=== PATIENT | male | born 1935 | race Caucasian/White ===

== ENCOUNTER 2016-11-05 12:30 | Observation (INO) | payer MEDICARE, OTHER ==
--- NOTE | ~2016-11-05 | EKG ---
PATIENT: JOSELO THOMAS UNIT #: [id number] Ventricular Rate: 66 BPM Atrial Rate: 66 BPM P-R Interval: 198 ms QRS Duration: 104 ms Q-T Interval: 430 ms QTC Calculation(Bezet): 450 ms P Metz: 55 degrees Calculated R Metz: 0 degrees Calculated T Metz: 67 degrees Diagnosis Line: Normal sinus rhythm Diagnosis Line: Incomplete right bundle branch block Nonspecific Diagnosis Line: ST abnormality Diagnosis Line: Borderline ECG Diagnosis Line: When compared with ECG of 08-APR-2015 17:12, Diagnosis Line: No significant change was found Diagnosis Line: Confirmed by ALICIA SOTOMAYOR MD ([id number]) on 11/05/2016 Diagnosis Line: 4:13:17 PM INTERPRETING MD: СВЕТЛАНА CABRERA
--- NOTE | ~2016-11-05 | CO ---
Unit #: [id number] #: [id number] Patient: JOSELO THOMAS [id number] [facility] [address] [facility]. [place], [place] [address] [id number] Rudy MR#: [id number] NAME: JOSELO THOMAS. ROOM: 310 Age: 80 Sex: M Admission Date: 11/05/2016 : 1935 Attending Physician: Shelly Tabor M.D. Primary Care Physician: Nolberto Mulligan M.D. Requesting Physician: Cheo Ruiz M.D. Consultation Date: 11/05/2016 CONSULTATION REPORT REASON FOR CONSULTATION Initially Code Stroke was called. He had speech problem. PATIENT IDENTIFICATION This is an 80-year-old right-handed white male who was evaluated in room 310 at [facility]. SOURCE OF INFORMATION The patient and previous records, I saw this patient in April of 2015 and also I did evaluation via video monitoring this morning. PROBLEM LIST 1. Prior episodes like this and diagnosis of abnormal EEG and possible seizure and supposed to be on Keppra. 2. Coronary artery disease. 3. Hypertension. 4. Hyperlipidemia. 5. Diabetes. 6. Eye surgery. 7. Cataract extraction. 8. Circumcision. 9. Appendectomy. 10. Coronary artery bypass grafting. HISTORY OF PRESENT ILLNESS This is an 80-year-old gentleman who has significant past medical history and I have seen him in the past for seizurelike event, had an abnormal EEG and he was brought in today because he could not speak. He is getting clear right now and his son, [id number] and daughter came. His daughter is on significant amount of psych medication and when the son went to see him at his house he saw a very large amount of pills and different bottles and their concern was that he may have taken her medications. His CT is okay. His CTA is okay. His MRI is okay. His labs are not otherwise bad. When I saw him in April of 2015 I did EEG on him and he was already started on Keppra because the EEG was abnormal but I do not see him on any such medication anymore. He was supposed to see Dr. Drake. One incidental finding is low B12 level. This is not a stroke so all stroke workup has been held right now. Unit #: [id number] #: [id number] Patient: JOSELO THOMAS PAST MEDICAL HISTORY As discussed above. PAST SURGICAL HISTORY As discussed above. ALLERGIES None. HOME MEDICATION 1. Aspirin. 2. Atorvastatin. 3. Isosorbide. 4. Januvia. 5. Metformin. 6. Glyburide. 7. Norvasc. 8. Lisinopril. 9. Potassium. 10. Furosemide. FAMILY HISTORY Probably is not significant because of age but there is a history of coronary artery disease in family and his daughter has significant psych history. SOCIAL HISTORY He lives with his daughter. No tobacco, alcohol or drug use. REVIEW OF SYSTEMS A bit concerning for memory problems so review of systems is very questionable in this case. CONSTITUTIONAL: He denies any sleep issues, fever, chills, rigors or sweats. HEENT: No headaches. No double vision. No earache. No sore throat. CARDIOVASCULAR: No chest pain, clubbing, cyanosis, orthopnea or palpitation. PULMONARY: No shortness of air, cough or expectoration. GASTROINTESTINAL: No nausea, vomiting, diarrhea or constipation. GENITOURINARY: No genitourinary symptoms. EXTREMITIES: No extremity problems. BACK: No back problems. PSYCHIATRIC: Issue is probably dementia or delirium NEUROLOGIC: Issue is prior seizures. No other hematologic, dermatologic or endocrine problems noted. PHYSICAL EXAMINATION VITAL SIGNS: Temperature 97.6, pulse 72, respirations 15, blood pressure is 145/87, O2 sats were 95% to 100% and weight of 153 pounds. NEUROLOGICAL EXAMINATION GENERAL: The patient is awake. He is alert. He knows where he is. He is mildly dysarthric but not aphasic. He is not oriented to time, otherwise he is fine. He can name and he can follow commands. No right/left confusion. No finger agnosia. CRANIAL NERVE EXAMINATION: The cranial nerve examination demonstrates he responds to threats in all alarcon. Eye movements are conjugate. I did Unit #: [id number] #: [id number] Patient: JOSELO THOMAS not see any ptosis. I did not see any nystagmus. Extraocular movements are intact. Sensation on the face and scalp is normal. Sensory muscles of facial expression are normal. Hearing is seems to be intact to bilaterally, probably mildly decreased. Tongue was midline. Uvula was midline. Head turning was spontaneous. MOTOR: Examination demonstrates normal bulk, tone. Strength was essentially 5-/5 all over. SENSORY: Examination intact for soft touch and pain sensation. No extinction was seen. Romberg was not evaluated. GAIT: Examination was deferred. REFLEXES: I could now get any reflexes. Toes are equivocal. DIAGNOSTIC STUDIES LABORATORY: Labs reviewed. Random glucose 146. His B12 level was low at 172. White count is 7.6, hemoglobin is 12.4. Urine drug screen was negative. Urinalysis really did not show anything major. IMAGING: Studies reviewed. IMPRESSION 1. This is a very interesting 80-year-old gentleman who probably had some polypharmacy and taking some of his daughter's psych medications. 2. This is not a stroke or a TIA. 3. He has history of seizures in the past and had abnormal EEG so this one may be a provoked event but I cannot rule out seizures and that is what the family is concern about so I will resume his antiepileptics but probably put him on Vimpat because of the cognitive changes that I am seeing in him. I really do not see any point of doing an EEG. If he is fine by tomorrow he can be discharged to follow up with Neurology. I believe he sees Dr. Drake. 4. I will also recommend B12 supplements and talk to the family so supportive care as far as I am concerned. Call me with any other question, issue or concern and further treatment will be based on any other changes. Other medication may be tried if Vimpat is not a good fit for any reason. 5. Loss of consciousness precautions are questionable though I have not been able to document that he had lost of consciousness so that is debatable. Dictated by... Stephen Javed/azul TD: 11/05/2016 18:56 JOB #: [id number] Unit #: [id number] #: [id number] Patient: JOSELO THOMAS CONSULTATION REPORT Page 1 of 1 X Olga Hernandez MD CONSULTATION REPORT
--- NOTE | ~2016-11-05 | CR72 ---
[facility] A Service of [facility] & [facility] RADIOLOGY TEXT RESULTS PATIENT: JOSELO THOMAS LOCATION: [facility] - : 33 UNIT #: [id number] AGE: [address]: Sarah Garduno MD SEX: M ORDER DR: [id number] [facility] [address] [place], [place] [address] [id number] I MR#: [id number] Acc #: [id number] NAME: JOSELO THOMAS. : 1935 SEX: M STUDY DATE/TIME: 11/05/2016 15:42 UNIT: [address] ROOM: [facility] STUDY DESCRIPTION: CR Chest Single View Portable Attending Physician: Shelly Tabor M.D. Ordering Physician: Shelly Tabor M.D. Primary Care Physician: Nolberto Mulligan M.D. MEDICAL IMAGING REPORT This report is preliminary unless electronic signature is present EXAM Portable chest 11/05/2016 HISTORY Lethargy, shortness of breath and chest congestion beginning at 09:00 a.m. today. FINDINGS The heart is normal in size status post median sternotomy. There is poor inspiratory result with bibasilar atelectasis. The upper lungs are clear. There are no pleural effusions. IMPRESSION Prior median sternotomy. No active pulmonary disease. Dictated by... Brad Herr M.D. THIS IS AN ELECTRONICALLY VERIFIED REPORT Brad Herr M.D. at 11/06/2016 10:45 AM Minerva TD: 11/06/2016 06:26 JOB #: [id number] MEDICAL IMAGING REPORT Page 1 of 1 COPY
--- NOTE | ~2016-11-05 | CT24 ---
[facility] A Service of [facility] RADIOLOGY TEXT RESULTS PATIENT: JOSELO THOMAS LOCATION: [facility] 301-01 : 33 UNIT #: [id number] AGE: [address]: Sarah Garduno MD SEX: M ORDER DR: [id number] [address] [address] [id number] E MR#: [id number] Acc #: [id number] NAME: JOSELO THOMAS. : 1935 SEX: M STUDY DATE/TIME: 11/05/2016 10:38 UNIT: [facility] ROOM: STUDY DESCRIPTION: CT Angio Neck Stroke Attending Physician: Micheal Ruiz Ordering Physician: Micheal Ruiz, [id number] Primary Care Physician: Nolberto Mulligan M.D. MEDICAL IMAGING REPORT This report is preliminary unless electronic signature is present EXAM CTA neck. FINDINGS Result text under order number [id number]. Please see this order for result text. Dictated by... Nemesio Reynaga M.D. THIS IS AN ELECTRONICALLY VERIFIED REPORT Nemesio Reyngaa M.D. at 11/06/2016 10:31 AM LUCÍA/rocael TD: 11/05/2016 14:02 JOB #: [id number] MEDICAL IMAGING REPORT Page 1 of 1 COPY
--- NOTE | ~2016-11-05 | HP ---
Unit #: [id number] #: [id number] Patient: JOSELO THOMAS [id number] [facility] [address] [facility]. [place], [place] [address] [id number] E MR#: [id number] NAME: JOSELO THOMAS. ROOM: Age: 80 Sex: M Admission Date: 11/05/2016 : 1935 Attending Physician: Cheo Ruiz M.D. Primary Care Physician: Nolberto Mulligan M.D. HISTORY AND PHYSICAL CHIEF COMPLAINT Stroke. HISTORY OF PRESENT ILLNESS The patient is an 80-year-old male with past medical history of hypertension, hyperlipidemia, diabetes, coronary artery disease, who presented to the emergency department for evaluation of the above. History is obtained from chart review and discussion with the ER staff as well as from the patient's daughter and son-in-law who are at the bedside. Of note, the patient lives with a daughter that is not currently at the bedside. The patient was apparently last normal around 9:30 a.m. He went to [facility]. He was noted by rastafarian members to be "nodding off." There was concern for possible abnormal speech. He was brought to the emergency department for further evaluation. In the emergency department a Code Stroke was called. He was not thought to be a candidate for tPA. CT of the head showed nothing acute. CT angiogram of the head and neck was negative. He is being admitted to [facility] for evaluation and further treatment. Of note, the patient was hospitalized at [facility] April 082014 for a similar problem. He was thought to have possibly had a seizure. He underwent an EEG that was abnormal and was discharged home on Keppra which he has been taking as prescribed. PAST MEDICAL HISTORY 1. Admission to [facility] April 08-2014 for altered mental status with possible seizure. He underwent EEG, on April 12, 2015, that was abnormal. He was discharged home on Keppra and was supposed to be following up with Dr. Drake. 2. Coronary artery disease, status post coronary artery bypass grafting. 3. Hypertension. 4. Hyperlipidemia. 5. Diabetes. 6. Echocardiogram April 12, 2008 showed ejection fraction of 50% with moderate septal hypokinesis, mild concentric left ventricular hypertrophy, mild mitral regurgitation, mild dilatation of the left atrium, mild tricuspid regurgitation. PAST SURGICAL HISTORY 1. Eye surgery. 2. Cataract extraction. 3. Circumcision. Unit #: [id number] #: [id number] Patient: JOSELO THOMAS 4. Appendectomy. 5. Coronary artery bypass grafting. SOCIAL HISTORY The patient lives with his daughter. There is no tobacco or alcohol use. He walks without assistance. FAMILY HISTORY Family history is notable for coronary artery disease. ALLERGIES No known allergies. HOME MEDICATIONS Include: 1. Aspirin 81 mg daily. 2. Atorvastatin 20 mg daily. 3. Isosorbide 30 mg daily. 4. Januvia 100 mg daily. 5. Metformin 500 mg b.i.d. 6. Glyburide 5 mg daily. 7. Norvasc 10 mg daily. 8. Lisinopril 40 mg q.a.m. and 20 mg q.p.m. 9. Potassium 10 mEq Sunday, Sunday, Sunday. 10. Furosemide unknown dose. REVIEW OF SYSTEMS A complete review of systems is somewhat limited from the patient due to altered mental status. The family members that are at the bedside are concerned that the patient and his daughter may have confused medication. They are requesting healthcare social worker evaluation. DIAGNOSTIC STUDIES IMAGING: CT of the head showed nothing acute. CT angiogram of the head and neck was essentially negative. LABORATORY: Complete blood count notable for hemoglobin and hematocrit of 12.4 and 40 respectively. INR is 1. Basic metabolic panel notable for a glucose of 146, BUN and creatinine 21 and 1.3 respectively. Urinalysis notable for greater than 1000 glucose. Urine tox screen is negative. PHYSICAL EXAMINATION VITAL SIGNS: Temperature is 97. Pulse 94. Respirations 16. Blood pressure 153/66. Oxygen saturation 95% on room air. GENERAL: The patient is a male who is lethargic but wakes to physical stimuli. HEENT: The head is atraumatic. Mucous membranes are moist. NECK: Neck is supple. Trachea is midline. CARDIOVASCULAR: Regular rate and rhythm. LUNGS: Lungs are clear to auscultation bilaterally with no increased work of breathing. ABDOMEN: Abdomen is soft, nontender, with bowel sounds present in all four quadrants. EXTREMITIES: Nontender, with no pedal edema. NEUROLOGIC: The patient is lethargic. His speech is somewhat slurred. There is no facial asymmetry. Tongue is midline. He follows commands. He is moving all extremities. Unit #: [id number] #: [id number] Patient: JOSELO THOMAS PSYCHIATRIC: The patient is cooperative. SKIN: Skin of examined areas is warm and dry. ASSESSMENT The patient is an 80-year-old male with: 1. Altered mental status. The patient was initially Code Stroke but was not thought to be a candidate for tPA. CT of the head was negative. CT angiogram of the head and neck is essentially negative. He had a similar presentation in 2014 and was started on Keppra which he has been taking as prescribed. There is also concern for possible medication involvement. The patient's daughter is apparently on multiple psychiatric medications and family is concerned that they may have confused their medications. Tox screen is negative. 2. Abnormal speech. 3. Hypertension. 4. Hyperlipidemia. 5. Diabetes. 6. Coronary artery disease, status post coronary artery bypass grafting. PLAN 1. Admit for observation to intermediate level. 2. Healthy heart consistent carb diet if passes bedside swallow. 3. Normal saline at 75 mL an hour. 4. MRI of the brain without contrast for further evaluation of altered mental status and abnormal speech. 5. Neuro checks. 6. Stroke protocol per neurology. 7. Consult Dr. Hernandez regarding altered mental status and abnormal speech. 8. TSH, B12 and folate. 9. Check LFTs. 10. Chest x-ray. 11. EKG and cardiac enzymes if not done. 12. Hemoglobin A1C. 13. Low dose sliding scale insulin with Accu-Cheks. 14. Aspirin if the patient has not already been given aspirin. 15. Hold any medication that could be contributing to altered mental status. 16. police manager/social work consult regarding home safety and possible medication issues. 17. SCDs for DVT prophylaxis. 18. Additional workup and consultants based on above. Dictated by Shelly Tabor M.D. Vijay TD: 11/05/2016 14:44 JOB #: [id number] Unit #: [id number] #: [id number] Patient: JOSELO THOMAS HISTORY AND PHYSICAL Page 1 of 1 X Shelly Tabor MD X HISTORY AND PHYSICAL
--- NOTE | ~2016-11-05 | MR18 ---
[facility] A Service of [facility] RADIOLOGY TEXT RESULTS PATIENT: JOSELO THOMAS LOCATION: [facility] : 33 UNIT #: [id number] AGE: [address]: Shelly Tabor MD SEX: M ORDER DR: [id number] [facility] [address] [facility]. [place], [place] [address] [id number] I MR#: [id number] Acc #: [id number] NAME: JOSELO THOMAS. : 1935 SEX: M STUDY DATE/TIME: 11/05/2016 16:27 UNIT: [address] ROOM: [address] [place] [address] DESCRIPTION: MR Brain Wo Contrast Attending Physician: Shelly Tabor M.D. Ordering Physician: Shelly Tabor M.D. Primary Care Physician: Nolberto Mulligan M.D. MRI CENTER REPORT This report is preliminary unless electronic signature is present. EXAM MRI brain without contrast INDICATIONS Slurred speech, weakness and confusion beginning on 11/05/2016 PROCEDURE Multiplanar, multisequence MR imaging of the brain without administration of contrast COMPARISON 04/09/2015 FINDINGS Age-appropriate generalized volume loss. There is mild periventricular T2 hyperintensity that is stable from the prior. Diffusion weighted imaging shows no evidence for acute or early subacute infarct. There is no evidence for acute hemorrhage, abnormal mass effect, extraaxial collection or hydrocephalus. Flow voids in the major intracranial vessels are intact and the paranasal sinuses and mastoid air cells are predominately clear. IMPRESSION 1. No acute findings. 2. No appreciable change from 04/09/2015. Dictated by... Cheo Morales M.D. THIS IS AN ELECTRONICALLY VERIFIED REPORT Cheo Morales M.D. at 11/06/2016 7:40 AM Slick TD: 11/06/2016 06:54 [facility] A Service [facility] RADIOLOGY TEXT RESULTS PATIENT: JOSELO THOMAS LOCATION: [facility] : 33 UNIT #: [id number] AGE: [address]: Shelly Tabor MD SEX: M ORDER DR: JOB #: [id number] MRI CENTER REPORT Page 1 of 1 COPY
--- NOTE | ~2016-11-05 | CT18 ---
[facility] A Service of [facility] RADIOLOGY TEXT RESULTS PATIENT: JOSELO THOMAS LOCATION: [facility] : 33 UNIT #: [id number] AGE: [address]: Sarah Garduno MD SEX: M ORDER DR: [id number] [facility] [address] [facility]. [place], [place] [address] [id number] E MR#: [id number] Acc #: [id number] NAME: JOSELO THOMAS. : 1935 SEX: M STUDY DATE/TIME: 11/05/2016 10:38 UNIT: [facility] ROOM: STUDY DESCRIPTION: CT Angio Head Stroke Attending Physician: Micheal Ruiz Ordering Physician: Micheal Ruiz, [id number] Primary Care Physician: Nolberto Mulligan M.D. MEDICAL IMAGING REPORT This report is preliminary unless electronic signature is present EXAM Head and neck CT angiogram PROCEDURE Axial contrast enhanced head and neck CT angiogram with 3-dimensional reformats. This CT exam was performed with one or more of the following radiation dose reduction techniques: automatic exposure control, adjustment of mA and/or kV according to patient size, and iterative reconstruction. COMPARISON Head CT without contrast same date. HISTORY About 40 minutes prior to admission found with slurred speech, slumped over and generalized weakness. FINDINGS There is a normal arch branching pattern without proximal great vessel stenosis but there is mild left vertebral dominance. There is plaque at the cervical carotid bifurcations but 0% stenosis in both internal carotids by NASCET criteria. The vertebral arteries are patent throughout the neck as well, with perhaps slight less vertebral dominance. The basilar artery is normal in caliber. Intracranially, the left posterior communicator is clearly demonstrated and the right is probably tiny and patent. The anterior communicator appears probably patent. There is symmetric intracranial vascularity in the anterior, middle and posterior cerebellar distributions. There is no aneurysm or flow limiting [facility] A Service [facility] RADIOLOGY TEXT RESULTS PATIENT: JOSELO THOMAS LOCATION: [facility] : 33 UNIT #: [id number] AGE: [address]: Sarah Garduno MD SEX: M ORDER DR: stenosis. There is mild cerebral volume loss but no convincing evidence of any acute intracranial abnormality. No hemorrhage or mass or lack of or abnormal enhancement. The dural venous sinuses are normal. The cervical soft tissues demonstrate no acute abnormality. The lung apices show no acute findings. There are spinal degenerative changes. IMPRESSION Essentially negative head and neck CT angiogram. No intra or extracranial aneurysm or flow limiting stenosis, branch vessel occlusion or other acute abnormality. Dictated by... Nemesio Reynaga M.D. THIS IS AN ELECTRONICALLY VERIFIED REPORT Nemesio Reynaga M.D. at 11/06/2016 10:31 AM LUCÍA/rocael TD: 11/05/2016 14:01 JOB #: [id number] MEDICAL IMAGING REPORT Page 1 of 1 COPY
--- NOTE | ~2016-11-05 | CT72 ---
[facility] A Service of [facility] RADIOLOGY TEXT RESULTS PATIENT: JOSELO THOMAS LOCATION: [facility] : 33 UNIT #: [id number] AGE: [address]: Micheal Ruiz MD SEX: M ORDER DR: [id number] [facility] [address] [place], [place] [address] [id number] E MR#: [id number] Acc #: [id number] NAME: JOSELO THOMAS. : 1935 SEX: M STUDY DATE/TIME: 11/05/2016 10:28 UNIT: [facility] ROOM: STUDY DESCRIPTION: CT Head Wo Contrast Stroke Attending Physician: Cheo Ruiz M.D. Ordering Physician: Cheo Ruiz M.D. Primary Care Physician: Nolberto Mulligan M.D. MEDICAL IMAGING REPORT This report is preliminary unless electronic signature is present EXAM CT head without contrast 11/05/2016. HISTORY 80-year-old male with slurred speech and generalized weakness beginning today [address] head 04/08/2015 TECHNIQUE Routine unenhanced axial images performed through the brain. FINDINGS No hemorrhage, acute infarction, mass lesion, or abnormal extraaxial fluid collection. No midline shift or focal mass effect. Ventricular system normal in size and configuration. Mild generalized atrophy and mild chronic small vessel disease. No acute bony abnormality. Mild mucosal thickening left frontal sinus and right frontal sinus. Visualized mastoid air cells are clear. IMPRESSION 1. No acute intracranial abnormality. 2. Several stable mild age-related atrophy and chronic small vessel disease. 3. Minimal mucosal thickening bilateral frontal sinus. Dictated by... Efraín Oden M.D. THIS IS AN ELECTRONICALLY VERIFIED REPORT Efraín Oden M.D. at 11/05/2016 2:14 PM [facility] A Service of [facility] & [facility] RADIOLOGY TEXT RESULTS PATIENT: JOSELO THOMAS LOCATION: [facility] : 33 UNIT #: [id number] AGE: [address]: Micheal Ruiz MD SEX: M ORDER DR: Ina TD: 11/05/2016 12:52 JOB #: [id number] MEDICAL IMAGING REPORT Page 1 of 1 COPY
--- NOTE | ~2016-11-05 | EKG ---
PATIENT: JOSELO THOMAS UNIT #: [id number] Ventricular Rate: 75 BPM Atrial Rate: 75 BPM P-R Interval: 178 ms QRS Duration: 100 ms Q-T Interval: 404 ms QTC Calculation(Bezet): 451 ms P [place]: 48 degrees Calculated R [place]: -16 degrees Calculated T [place]: 67 degrees Diagnosis Line: Normal sinus rhythm Diagnosis Line: Incomplete right bundle branch block T wave Diagnosis Line: abnormality, consider anterior ischemia Diagnosis Line: Abnormal ECG Diagnosis Line: When compared with ECG of 05-NOV-2016 10:52, Diagnosis Line: (unconfirmed) Diagnosis Line: No significant change was found Diagnosis Line: Confirmed by ALICIA SOTOMAYOR MD ([id number]) on 11/05/2016 Diagnosis Line: 4:14:00 PM INTERPRETING MD: СВЕТЛАНА CABRERA
[2016-11-05 10:30] LABS: BASOPHIL% 0.6 % (0-2.5); EOSINOPHIL# 0.1 X10e3 (0-0.7); EOSINOPHIL% 1.6 % (0.0-7.0); HEMOGLOBIN 12.4 gm/dL (13.0-16.0); LYMPHOCYTE# 2.1 X10e3 (1.0-3.5); MEAN CELL VOLUME 81.4 FL (83-96); MEAN CORPUSCULAR HEMOGLOBIN 25.3 PG (28-34); MEAN PLATELET VOLUME 8.2 FL (6.5-11.5); MONOCYTE# 0.5 X10e3 (0-1.0); MONOCYTE% 7.1 % (3.0-12.0); NEUTROPHIL# 4.7 X10e3 (1.5-7.1); NEUTROPHIL% 62.7 % (40-75); PLATELET COUNT 177 X10e3 (140-420); RED BLOOD COUNT 4.92 X10e (3.90-5.60); WHITE BLOOD COUNT 7.6 X10e3 (4.0-10.5)
[2016-11-05 10:35] LABS: DIFF IND NO
[2016-11-05 10:43] LABS: PROTHROMBIN TIME (PATIENT) 10.5 SECONDS (9.6-11.5)
[2016-11-05 10:53] LABS: BUN/CREATININE RATIO 16.15; CALCIUM SERUM 8.8 mg/dL (8.4-10.2); CREATININE SERUM 1.3 mg/dL (0.6-1.4); GLOM FILT RATE Estimated 50.8 mL/min (>60); POTASSIUM 4.1 mmol/L (3.5-5.1)
[2016-11-05 11:41] LABS: URINE SOURCE CLEAN CATCH
[2016-11-05 11:48] LABS: URINE APPEARANCE CLEAR; URINE BILIRUBIN NEG (NEG); URINE BLOOD NEG (NEG); URINE COLOR YELLOW; URINE GLUCOSE >1000 MG/DL (NEG); URINE KETONE NEG (NEG); URINE LEUKOCYTE ESTERASE NEG (NEG); URINE NITRATE NEG (NEG); URINE PH 7.5 (5-8); URINE PROTEIN NEG (NEG); URINE SPECIFIC GRAVITY 1.019 (1.003-1.035); URINE UROBILINOGEN 0.2 MG/DL (NEG)
[2016-11-05 11:58] LABS: CULTURE INDICATED? NO
[2016-11-05 11:59] LABS: AMPHETAMINE NEG (NEG); BARBITURATES NEG (NEG); BENZODIAZEPINES NEG (NEG); COCAINE NEG (NEG); MARIJUANA NEG (NEG); OPIATES NEG (NEG); TRICYCLIC ANTIDEPRESSANTS NEG (NEG); U METHADONE NEG (NEG)
[~2016-11-05 12:30] MED LIST: ASPIRIN PO; ASPIRIN81 MG PO; CARVEDILOL3.125 MG PO; COREG; GLYBURIDE PO; HCTZ PO; IMDUR-ER30 M1 PO; INVOKANA100 MG PO; ISMO20 MG PO; JANUVIA PO; JANUVIA50 MG; KEPPRA500 M2 PO; LASIX; LASIX PO; LIPITOR PO; LIPITOR20 MG PO; LISINOPRIL PO; LOPRESSOR PO; METFORMIN PO; NORVASC PO; PLAVIX300 MG PO; POTASSIUM CHLO10 ME1 PO; POTASSIUM CHLO10 MEQ; PRINIVIL20 M1 PO
[2016-11-05] MEDS ORDERED: ASPIRIN81 MG PO (13:56)
[2016-11-05] MEDS ORDERED: ISOSORBIDE MONO30 M1 PO (13:57)
[2016-11-05] MEDS ORDERED: LIPITOR20 MG PO (13:57)
[2016-11-05] MEDS ORDERED: METFORMIN HCL500 M3 PO (13:58)
[2016-11-05] MEDS ORDERED: JANUVIA PO (13:58)
[2016-11-05] MEDS ORDERED: MICRONASE5 M2 PO (14:00)
[2016-11-05] MEDS ORDERED: NORVASC10 MG PO (14:01)
[2016-11-05] MEDS ORDERED: LISINOPRIL PO (14:02)
[2016-11-05] MEDS ORDERED: ZESTRIL40 MG PO (14:02)
[2016-11-05] MEDS ORDERED: POTASSIUM CHLO10 ME1 PO (14:03)
[2016-11-05 15:10] LABS: POC - CREATININE 1.21 mg/dL (0.64-1.27); POC - GFR >60.0 mL/min (>60)
[2016-11-05 15:28] LABS: ALBUMIN SERUM 3.9 g/dL (3.5-5.0); BILIRUBIN, DIRECT 0.2 mg/dL (0.0-0.2); BILIRUBIN,INDIRECT 0.6 mg/dL (0.0-0.9); BILIRUBIN,TOTAL 0.8 mg/dL (0.2-2.0); PROTEIN TOTAL SERUM 6.6 g/dL (6.0-8.3)
[2016-11-05 15:47] LABS: %MB 2.4 % (0.0-4.0); MB 1.7 ng/ml
[2016-11-05 15:48] LABS: ARTERIAL BLD GAS O2 SATURATION 96.5 % (90.0-100.0); ARTERIAL BLOOD GAS CARBOXY HB 0.5 %sat (0.0-9.0); ARTERIAL BLOOD GAS HCO3 24.9 mmol/L; ARTERIAL BLOOD GAS MET HB 1.1 %sat (0.0-2.0); ARTERIAL BLOOD GAS PCO2 36.4 mmHg (35.0-45.0); ARTERIAL BLOOD GAS pH 7.444 (7.350-7.450)
[2016-11-05 15:50] LABS: ARTERIAL BLOOD GAS ALLEN TEST POS; ARTERIAL BLOOD GAS ART SITE RIGHT RADIAL; ARTERIAL BLOOD GAS DELIVERY NASAL CANNULA; ARTERIAL DRAW? YES
[2016-11-05 16:08] LABS: FOLATE (FOLIC ACID) 22.1 ng/mL (>5.8)
[2016-11-05 21:05] LABS: %MB 2.6 % (0.0-4.0); MB 1.8 ng/ml
[2016-11-06 03:00] LABS: HEMOGLOBIN 12.6 gm/dL (13.0-16.0); MEAN CELL VOLUME 80.4 FL (83-96); MEAN CORPUSCULAR HEMOGLOBIN 25.2 PG (28-34); MEAN CORPUSCULAR HGB CONC 31.4 g/dL (30-36); MEAN PLATELET VOLUME 8.3 FL (6.5-11.5); RED BLOOD COUNT 4.98 X10e (3.90-5.60); RED CELL DISTRIBUTION WIDTH 15.5 % (11.0-15.5); WHITE BLOOD COUNT 9.7 X10e3 (4.0-10.5)
[2016-11-06 03:24] LABS: ALBUMIN SERUM 3.7 g/dL (3.5-5.0); BILIRUBIN,TOTAL 0.8 mg/dL (0.2-2.0); BUN/CREATININE RATIO 15.45; CALCIUM SERUM 8.4 mg/dL (8.4-10.2); CREATININE SERUM 1.1 mg/dL (0.6-1.4); GLOM FILT RATE Estimated 62.2 mL/min (>60); POTASSIUM 3.5 mmol/L (3.5-5.1); PROTEIN TOTAL SERUM 6.2 g/dL (6.0-8.3)
[2016-11-06 03:37] LABS: %MB 1.8 % (0.0-4.0); MB 2.3 ng/ml
[2016-11-06] MEDS ORDERED: KEPPRA500 M2 PO (16:09)
[2016-11-06] MEDS ORDERED: B-121000 MC1 PO (16:09)
== END 2016-11-06 17:40 | disposition home or self-care (01) ==
LOC: CED 12:30 → CEDOF 14:20 → C3A PCU 17:07
PROVIDERS: Emergency Medicine; Family Medicine
DX: R41.82 Altered mental status, unspecified (principal); R47.9 Unspecified speech disturbances; I10 Essential (primary) hypertension; I25.10 Atherosclerotic heart disease of native coronary artery without angina pectoris; Z95.1 Presence of aortocoronary bypass graft; E78.5 Hyperlipidemia, unspecified; E11.9 Type 2 diabetes mellitus without complications; Z79.84 Long term (current) use of oral hypoglycemic drugs; Z82.49 Family history of ischemic heart disease and other diseases of the circulatory system; R94.01 Abnormal electroencephalogram [EEG]
CPT/HCPCS: 36600; 70450; 70496; 70498; 70551; 71010; 80048; 80053; 80076; 80307; 81003; 82550; 82553; 82565; 82607; 82746; 82803; 82947; 83036; 84443; 84484; 85025; 85027; 85610; 92610; 93005; 94760; 96372; 99285; G0378; G8996-GN; G8997-GN; G8998-GN; J1815; J3420; Q9967

== ENCOUNTER 2016-11-15 10:43 | Emergency (ER) | payer MEDICARE ==
--- NOTE | ~2016-11-15 | EKG ---
PATIENT: JOSELO THOMAS UNIT #: [id number] Ventricular Rate: 68 BPM Atrial Rate: 68 BPM P-R Interval: 192 ms QRS Duration: 98 ms Q-T Interval: 418 ms QTC Calculation(Bezet): 444 ms P Goree: 43 degrees Calculated R Goree: -4 degrees Calculated T Goree: 88 degrees Diagnosis Line: Normal sinus rhythm Diagnosis Line: Incomplete right bundle branch block Diagnosis Line: T wave abnormality, consider anterior ischemia Diagnosis Line: Abnormal ECG Diagnosis Line: When compared with ECG of 05-NOV-2016 14:38, Diagnosis Line: T wave inversion more evident in Anterior leads Diagnosis Line: Confirmed by ALICIA SOTOMAYOR MD ([id number]) on 11/16/2016 Diagnosis Line: 10:36:51 AM INTERPRETING MD: СВЕТЛАНА CABRERA
--- NOTE | ~2016-11-15 | CT71 ---
[facility] A Service of [facility] RADIOLOGY TEXT RESULTS PATIENT: JOSELO THOMAS LOCATION: [facility] : 33 UNIT #: [id number] AGE: [address]: Carl Solorio MD SEX: M ORDER DR: [id number] [facility] [address] [place], [place] [address] [id number] E MR#: [id number] Acc #: [id number] NAME: JOSELO THOMAS. : 1935 SEX: M STUDY DATE/TIME: 11/15/2016 12:35 UNIT: [facility] ROOM: STUDY DESCRIPTION: CT Head Wo Contrast Attending Physician: Carl Solorio M.D. Ordering Physician: Carl Solorio M.D. Primary Care Physician: Nolberto Mulligan M.D. MEDICAL IMAGING REPORT This report is preliminary unless electronic signature is present EXAM Noncontrast CT head DATE 11/15/2016 at 12:35 HISTORY Weakness and slurred speech this morning. Last seen normal last night. History of diabetes, hypertension. COMPARISON Noncontrast CT head and CTA head neck 11/05/2016. MRI brain 11/05/2016. TECHNIQUE This CT exam was performed with one or more of the following radiation dose reduction techniques: automatic exposure control, adjustment of mA and/or kV according to patient size, and iterative reconstruction. FINDINGS Hypodensities are present within the deep white matter of the brain thought to represent changes of chronic microvascular disease, slightly more prominent within the subinsular regions. These findings appear similar to the previous examination. No convincing CT evidence of acute or evolving infarct. No mass lesion, mass effect, midline shift or intracranial hemorrhage is seen. There is rzqx-he-xxdmnsox generalized parenchymal atrophy. Ventricular configuration is stable and within normal limits. There is mild ethmoid sinus mucosal thickening. Calvarium is within normal limits. Mastoid air cells are clear. IMPRESSION Chronic microvascular disease changes of bacr-xe-sohfyman generalized parenchymal atrophy, without significant change compared to 11/05/2016. No acute intracranial findings. [facility] A Service of [facility] RADIOLOGY TEXT RESULTS PATIENT: JOSELO THOMAS LOCATION: [facility] : 33 UNIT #: [id number] AGE: [address]: Carl Solorio MD SEX: M ORDER DR: Dictated by... Penelope Nevarez M.D. THIS IS AN ELECTRONICALLY VERIFIED REPORT Penelope Nevarez M.D. at 11/17/2016 7:14 AM [facility]/arash TD: 11/15/2016 13:23 JOB #: [id number] MEDICAL IMAGING REPORT Page 1 of 1 COPY
--- NOTE | ~2016-11-15 | CR72 ---
[facility] A Service of [facility] RADIOLOGY TEXT RESULTS PATIENT: JOSELO THOMAS LOCATION: [facility] : 33 UNIT #: [id number] AGE: [address]: Carl Solorio MD SEX: M ORDER DR: [id number] [facility] [address] [place], [place] [address] [id number] E MR#: [id number] Acc #: [id number] NAME: JOSELO THOMAS. : 1935 SEX: M STUDY DATE/TIME: 11/15/2016 12:58 UNIT: [facility] ROOM: STUDY DESCRIPTION: CR Chest Single View Portable Attending Physician: Carl Solorio M.D. Ordering Physician: Carl Solorio M.D. Primary Care Physician: Nolberto Mulligan M.D. MEDICAL IMAGING REPORT This report is preliminary unless electronic signature is present EXAM Chest portable, 11/15/2016 12:58 hours HISTORY 80-year-old man with weakness, slurred speech this morning. Possible acute CVA. COMPARISON 11/05/2016 FINDINGS Portable upright chest demonstrates median sternotomy change with normal heart size and stable tortuous atherosclerotic aorta. The lungs are well expanded and clear. There is no effusion or pneumothorax. Probable hiatal hernia. IMPRESSION Median sternotomy change with normal heart size and stable tortuous aorta. The lungs are clear and there are no effusions. Dictated by... Keara Garcia M.D. THIS IS AN ELECTRONICALLY VERIFIED REPORT Keara Garcia M.D. at 11/15/2016 2:29 PM Andreas TD: 11/15/2016 14:00 JOB #: [id number] MEDICAL IMAGING REPORT Page 1 of 1 COPY
[~2016-11-15 10:43] MED LIST changes: +B-121000 MC1 PO; +ISOSORBIDE MONO30 M1 PO; +METFORMIN HCL500 M3 PO; +MICRONASE5 M2 PO; +NORVASC10 MG PO; +ZESTRIL40 MG PO
[2016-11-15 12:41] LABS: BASOPHIL# 0.1 X10e3 (0-0.3); BASOPHIL% 0.6 % (0-2.5); EOSINOPHIL% 0.5 % (0.0-7.0); HEMOGLOBIN 13.1 gm/dL (13.0-16.0); LYMPHOCYTE# 1.5 X10e3 (1.0-3.5); LYMPHOCYTE% 17.3 % (17.0-45.0); MEAN CELL VOLUME 81.5 FL (83-96); MEAN CORPUSCULAR HEMOGLOBIN 25.4 PG (28-34); MEAN CORPUSCULAR HGB CONC 31.2 g/dL (30-36); MEAN PLATELET VOLUME 8.2 FL (6.5-11.5); MONOCYTE# 0.5 X10e3 (0-1.0); MONOCYTE% 5.3 % (3.0-12.0); NEUTROPHIL# 6.5 X10e3 (1.5-7.1); NEUTROPHIL% 76.3 % (40-75); PLATELET COUNT 194 X10e3 (140-420); RED BLOOD COUNT 5.15 X10e (3.90-5.60); WHITE BLOOD COUNT 8.5 X10e3 (4.0-10.5)
[2016-11-15 12:43] LABS: DIFF IND NO
[2016-11-15 13:12] LABS: ALBUMIN SERUM 3.9 g/dL (3.5-5.0); BILIRUBIN, DIRECT 0.1 mg/dL (0.0-0.2); BILIRUBIN,INDIRECT 0.5 mg/dL (0.0-0.9); BILIRUBIN,TOTAL 0.6 mg/dL (0.2-2.0); CREATININE SERUM 1.2 mg/dL (0.6-1.4); POTASSIUM 4.4 mmol/L (3.5-5.1); PROTEIN TOTAL SERUM 6.8 g/dL (6.0-8.3)
[2016-11-15 14:25] LABS: URINE SOURCE CLEAN CATCH
[2016-11-15 14:29] LABS: URINE APPEARANCE CLEAR; URINE BILIRUBIN NEG (NEG); URINE BLOOD NEG (NEG); URINE COLOR YELLOW; URINE GLUCOSE >1000 MG/DL (NEG); URINE KETONE TRACE (NEG); URINE LEUKOCYTE ESTERASE NEG (NEG); URINE NITRATE NEG (NEG); URINE PROTEIN NEG (NEG); URINE SPECIFIC GRAVITY 1.032 (1.003-1.035)
[2016-11-15 14:33] LABS: CULTURE INDICATED? NO
[2016-11-15 14:40] LABS: AMPHETAMINE NEG (NEG); BARBITURATES NEG (NEG); BENZODIAZEPINES NEG (NEG); COCAINE NEG (NEG); MARIJUANA NEG (NEG); OPIATES NEG (NEG); TRICYCLIC ANTIDEPRESSANTS NEG (NEG); U METHADONE NEG (NEG)
[2016-11-15 15:24] LABS: POC - TROPONIN <0.05 ng/mL (<=0.05)
== END 2016-11-15 18:28 | disposition home or self-care (01) ==
LOC: CED 10:43
PROVIDERS: Emergency Medicine
DX: G47.00 Insomnia, unspecified (principal); E11.9 Type 2 diabetes mellitus without complications; E78.5 Hyperlipidemia, unspecified; I10 Essential (primary) hypertension
CPT/HCPCS: 36415; 70450; 71010; 80048; 80076; 80307; 81003; 82553; 84484; 85025; 93005; 99284

== ENCOUNTER → 2017-02-21 | Outpatient (CLI) | payer OTHER | END | disposition home or self-care (01) | LOC: CEEG 02-13 09:00 | DX: R56.9 Unspecified convulsions (principal) | CPT/HCPCS: 95816 ==